=== PATIENT | male | born 1945 | race Caucasian/White ===

== ENCOUNTER 2018-04-05 13:16 | Day surgery (SDC) | payer OTHER ==
[~2018-04-05] VITALS: Ht 188 cm; Wt 101.4 kg
[~2018-04-05 13:16] MED LIST: ALBU90OI INH; ANTIHISTAMINE; ASPI325 PO; ASPI81CH PO; ATOR20 PO; Aspirin EC81 MG; DEEP SEA44 ML; FAMO20 PO; FLUSAL1005 INH; FLUT1DIS2 INH; LANS15EC PO; METO50ER PO; Metamucil0.52 GM; NASACORT10.8 ML; NASACORT10.8 ML NS; OXYACE5T PO; PSYL5.85P PO; QUIN10 PO
== END 2018-04-05 14:54 | disposition home or self-care (01) ==
LOC: ORSCSDS 13:16
PROVIDERS: Internal Medicine Gastroenterology
PROC: 0DBN8ZX Excision of Sigmoid Colon, Via Natural or Artificial Opening Endoscopic, Diagnostic (ICD-10-PCS; principal; 2018-04-05 15:15)
DX: Z12.11 Encounter for screening for malignant neoplasm of colon (principal); D12.5 Benign neoplasm of sigmoid colon; K57.30 Diverticulosis of large intestine without perforation or abscess without bleeding; Z86.010 Personal history of colon polyps; K21.9 Gastro-esophageal reflux disease without esophagitis; K76.0 Fatty (change of) liver, not elsewhere classified; F17.210 Nicotine dependence, cigarettes, uncomplicated; E66.9 Obesity, unspecified; Z68.30 Body mass index [BMI] 30.0-30.9, adult; J45.909 Unspecified asthma, uncomplicated; Z79.82 Long term (current) use of aspirin; Z79.899 Other long term (current) drug therapy
CPT/HCPCS: J7120

== ENCOUNTER 2022-05-14 10:56 | Day surgery (SDC) | payer OTHER ==
[~2022-05-14] VITALS: Ht 188 cm; Wt 105.4 kg
--- NOTE | 2022-05-14 12:39 | NUR ---
History, Chart, Medications and Allergies reviewed before start of procedure. Patient confirms NPO status and agrees with scheduled surgery. NURSES X3 ATTEMPTED IV START PT TOLERATED WELL.
--- NOTE | 2022-05-14 13:23 | NUR ---
PT GLASSES BROUGHT TO PACU FOR SAFEKEEPING DURING SURGERY.
--- NOTE | 2022-05-14 14:04 | NUR ---
05/14/22 1404 Jasmin Kohler 1G [place] STARTED IN PREOP AT 1305
--- NOTE | 2022-05-14 18:52 | NUR ---
SHIFT SUMMARY PT A&OX4, VSS/RA, ANGIE PO, DENIES PAIN, AWAITING POST-OP VOID, REPOSITIONS SELF WELL/HAS NOT BEEN OUT OF BED. S/P L TKA, DRESSING CDI. WILL REPORT TO ONCOMING NOC RN.
[2022-05-15 04:49] LABS: BASOPHILS ABSOLUTE AUTO 0.01 K/mm3 (0.00-0.23); BASOPHILS PERCENT AUTO 0 % (0-2); EOSINOPHILS PERCENT AUTO 0 % (0-6); Hematocrit 37.5 % (37.0-53.0); Hemoglobin 12.6 g/dL (13.5-17.5); IMMATURE GRAN ABSOLUTE AUTO 0.04 K/mm3 (0.00-0.10); IMMATURE GRAN PERCENT AUTO 0 % (0-1); LYMPHOCYTES PERCENT AUTO 11 % (21-46); MONOCYTES ABSOLUTE AUTO 0.64 K/mm3 (0.16-1.47); MONOCYTES PERCENT AUTO 6 % (4-13); Mean Corpuscular HGB 31.4 pg (26.0-34.0); Mean Corpuscular HGB Conc 33.6 g/dL (31.5-36.5); Mean Corpuscular Volume 94 fL (80-100); Mean Platelet Volume 9.8 fL (9.1-12.4); NEUTROPHILS ABSOLUTE AUTO 9.31 K/mm3 (1.96-9.15); NEUTROPHILS PERCENT AUTO 83 % (41-73); Platelet Count 160 K/mm3 (150-400); RDW Coefficient Variation 12.5 % (11.7-14.2); RDW Standard Deviation 43.2 fL (35.1-46.3); Red Blood Cell Count 4.01 M/mm3 (4.30-5.90)
--- NOTE | 2022-05-15 04:51 | NUR ---
SHIFT SUMMARY NO ACUTE CHANGES OVERNIGHT, PT HAS DONE WELL OVERNIGHT. PT POD 0 LEFT TOTAL KNEE. PAIN HAS BEEN MINIMAL, HE HAS BEEN UP AMBULATING TO IN THE REBOLLEDO AND TO AND FROM THE BATHROOM. DRESSING INTACT TO LEFT KNEE, HE DENIES N/T IN EXT AND IS ABLE TO WIGGLE TOES. POST OP VITALS STABLE. TOLEARTING PO INTAKE AND IS VOIDING. BED IN LOWEST POSITION, CALL LIGHT WITHIN REACH.
[2022-05-15 05:51] LABS: Bun/Creatinine Ratio 24.3 (12.0-20.0); Calcium, Blood 8.6 mg/dL (8.5-10.1); Creatinine, Blood 0.58 mg/dL (0.60-1.20); Magnesium, Blood 1.8 mg/dL (1.6-2.4); Potassium, Blood 4.3 mmol/L (3.5-5.5)
[2022-05-15] MEDS ORDERED: Aspir 8181 MG PO (08:19)
[2022-05-15] MEDS ORDERED: OXYC5 PO (08:20)
[2022-05-15] MEDS ORDERED: PROMETHAZINE12.5 M1 PO (08:21)
--- NOTE | 2022-05-15 10:07 | NUR ---
CLEARED FOR DC BY PT, DC'D HOME, DC INSTRUCTIONS GIVEN, VERBALIZED UNDERSTANDING.
== END 2022-05-15 10:10 | disposition home or self-care (01) ==
LOC: ORSCMMR 10:56 → ORD 12:30 → ORSCMMR 13:30 → ORD 13:30 → SURS 16:34 → ORSCMMR 05-15 10:10
PROVIDERS: Orthopaedic Surgery
PROC: 0SRD0J9 Replacement of Left Knee Joint with Synthetic Substitute, Cemented, Open Approach (ICD-10-PCS; principal; 2022-05-14 13:30)
DX: M17.12 Unilateral primary osteoarthritis, left knee (principal); Z96.651 Presence of right artificial knee joint; J45.909 Unspecified asthma, uncomplicated; Z79.899 Other long term (current) drug therapy; I10 Essential (primary) hypertension; E78.5 Hyperlipidemia, unspecified; K21.9 Gastro-esophageal reflux disease without esophagitis
CPT/HCPCS: 36415; 73560-LT; 80048; 83735; 85025; 97110; 97116; 97162; A9270; C1713; C1776; J0171; J0690; J0735; J1100; J1885; J2250; J2370; J2405; J2704; J2795; J3010; J3370; J7120

== ENCOUNTER 2024-09-26 07:40 | Emergency (ER) | payer OTHER ==
[~2024-09-26] VITALS: Ht 188 cm; Wt 99.8 kg
[~2024-09-26 07:40] MED LIST changes: +Aspir 8181 MG PO; +OXYC5 PO; +PROMETHAZINE12.5 M1 PO
[2024-09-26] MEDS ORDERED: Ketorolac Tromethamine 30mg Vial IV ONE (08:10)
[2024-09-26] MEDS ORDERED: Gabapentin 300 MG Cap PO ONE (08:10)
[2024-09-26 08:22] LABS: BASOPHILS ABSOLUTE AUTO 0.03 K/mm3 (0.00-0.23); BASOPHILS PERCENT AUTO 0 % (0-2); EOSINOPHILS ABSOLUTE AUTO 0.38 K/mm3 (0.00-0.68); EOSINOPHILS PERCENT AUTO 5 % (0-6); Hematocrit 45.4 % (37.0-53.0); Hemoglobin 15.6 g/dL (13.5-17.5); IMMATURE GRAN ABSOLUTE AUTO 0.02 K/mm3 (0.00-0.10); IMMATURE GRAN PERCENT AUTO 0 % (0-1); LYMPHOCYTES ABSOLUTE AUTO 2.88 K/mm3 (0.84-5.20); LYMPHOCYTES PERCENT AUTO 39 % (21-46); MONOCYTES ABSOLUTE AUTO 0.68 K/mm3 (0.16-1.47); MONOCYTES PERCENT AUTO 9 % (4-13); Mean Corpuscular HGB 30.1 pg (26.0-34.0); Mean Corpuscular HGB Conc 34.4 g/dL (31.5-36.5); Mean Corpuscular Volume 88 fL (80-100); Mean Platelet Volume 9.3 fL (9.1-12.4); NEUTROPHILS ABSOLUTE AUTO 3.33 K/mm3 (1.96-9.15); NEUTROPHILS PERCENT AUTO 46 % (41-73); Platelet Count 204 K/mm3 (150-400); RDW Coefficient Variation 13.9 % (11.7-14.2); RDW Standard Deviation 44.5 fL (35.1-46.3); Red Blood Cell Count 5.18 M/mm3 (4.30-5.90); White Blood Cell Count 7.32 K/mm3 (4.00-11.30)
[2024-09-26 08:23] LABS: Bun/Creatinine Ratio 22.7 (12.0-20.0); Calcium, Blood 9.1 mg/dL (8.5-10.1); Creatinine, Blood 0.75 mg/dL (0.60-1.20); Magnesium, Blood 2.4 mg/dL (1.6-2.4); Potassium, Blood 3.9 mmol/L (3.5-5.5)
[2024-09-26] MEDS ORDERED: PredniSONE 20 MG Tab PO ONE (09:10)
[2024-09-26] MEDS ORDERED: Methocarbamol 500 MG Tab PO ONE (09:15)
[2024-09-26] MEDS ORDERED: GABA300 PO (09:17)
[2024-09-26] MEDS ORDERED: PRED20 PO (09:17)
[2024-09-26 09:33] VITALS: BP 122/79
== END 2024-09-26 09:44 | disposition home or self-care (01) ==
LOC: ER 07:40
PROVIDERS: Student in an Organized Health Care Education/Training Program
DX: G51.0 Bell's palsy (principal); M54.32 Sciatica, left side; I10 Essential (primary) hypertension; E78.5 Hyperlipidemia, unspecified; Z79.1 Long term (current) use of non-steroidal anti-inflammatories (NSAID); Z88.8 Allergy status to other drugs, medicaments and biological substances; Z79.899 Other long term (current) drug therapy; Z87.891 Personal history of nicotine dependence
CPT/HCPCS: 80048; 82947; 83735; 85025; 96374; 99284-25; A9270; J1885; J7512

== ENCOUNTER 2025-05-04 06:14 | Day surgery (SDC) | payer OTHER ==
[~2025-05-04] VITALS: Ht 188 cm; Wt 108.2 kg
[~2025-05-04 06:14] MED LIST changes: +Balanced Salt Epinephrine Irrigation Solution 500 mL IR SCH; +GABA300 PO; +Moxifloxacin HCL 0.5 MG/0.1 ML 0.4MLSYR RIGHTEYE SCH; +Ondansetron 4 MG SoluTab MM PRN; +PHENYLEPHRINE\\TROPICAMIDE\\TETRACAINE OPHTHALMIC DILATING SOLN RIGHTEYE PRN; +PRED20 PO; +Povidone-Iodine 450 DROP/30 ML Solution ONE; +Povidone-Iodine 450 DROP/30 ML Solution RIGHTEYE SCH; +Tetracaine HCl/Pf 0.5% Opth Soln 4 ml ONE; +Triamcinolone Inj Susp 40 MG / ML 1ML Vial INJ SCH
[2025-05-04] MEDS ORDERED: Triamcinolone Inj Susp 40 MG / ML 1ML Vial ONE (06:49)
--- NOTE | 2025-05-04 06:55 | NUR ---
05/04/25 0655 Yazmin Vera 0645 PT STS THE [facility] "DID NOT DO ANYTHING LAST TIME". STS HE PREFERS NOT TO TAKE ANYTHING.
[2025-05-04] MEDS ORDERED: Tetracaine HCl 0.5% Opth Soln 15 ml RIGHTEYE ONE (08:02)
--- NOTE | 2025-05-04 08:02 | NUR ---
05/04/25 0802 Ayesha De La Fuente 141/86 50 HR 18 RR 99% O2
[2025-05-04 08:20] VITALS: BP 133/87
--- NOTE | 2025-05-04 08:21 | NUR ---
05/04/[address] SPOKE WITH PT. STATES THAT PT DID NOT HAVE ANY SEDATION AND THAT PT CAN DRIVE HIMSELF HOME.
== END 2025-05-04 08:27 | disposition home or self-care (01) ==
LOC: ORSCSDS 06:14
PROVIDERS: Ophthalmology
PROC: 08RJ3JZ Replacement of Right Lens with Synthetic Substitute, Percutaneous Approach (ICD-10-PCS; principal; 2025-05-04 08:00)
DX: H25.811 Combined forms of age-related cataract, right eye (principal); Z96.1 Presence of intraocular lens
CPT/HCPCS: A9270; J3301; V2632